=== PATIENT | male | born 1995 | race Caucasian/White ===

== ENCOUNTER 2017-09-26 02:20 | Emergency (ER) | payer BC ==
[2017-09-26] MEDS ORDERED: Morphine 10 MG/ML Syringe IM ONE (02:44)
[2017-09-26] MEDS ORDERED: traMADol 50 MG Tab PO ONE (03:51)
[2017-09-26] MEDS ORDERED: Amoxicillin/Clavulanate K 875-125 MG Tab PO ONE (03:51)
[2017-09-26] MEDS ORDERED: Ondansetron 4 MG/2 ML SDV IM ONE (03:53)
[2017-09-26] MEDS ORDERED: Diphtheria,Pertussis(Acell),Tetanus Vaccine 0.5 ML SDV IM ONE (04:02)
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
== END 2017-09-26 04:35 | disposition home or self-care (01) ==
LOC: FB.ED 02:24
DX: S02.81XA Fracture of other specified skull and facial bones, right side, initial encounter for closed fracture (principal); Z23 Encounter for immunization; W10.1XXA Fall (on)(from) sidewalk curb, initial encounter
CPT/HCPCS: 70450; 70486; 90471; 90715; 96372; 99283; J2270; J2405; A9270-GY